=== PATIENT | female | born 1985 | race Two or more races ===

== ENCOUNTER 2024-05-25 18:29 | Emergency (ER) | payer OTHER ==
[~2024-05-25] VITALS: Ht 165.1 cm; Wt 65.8 kg
[2024-05-25] MEDS ORDERED: LEVOTHYROXINE50 MCG PO (18:38)
== END 2024-05-25 19:12 | disposition home or self-care (01) ==
LOC: ER 18:30
DX: T85.44XA Capsular contracture of breast implant, initial encounter (principal); Z88.2 Allergy status to sulfonamides; Z88.0 Allergy status to penicillin

== ENCOUNTER 2024-12-04 19:29 | Emergency (ER) | payer OTHER ==
[~2024-12-04] VITALS: Ht 165.1 cm; Wt 72.6 kg
[~2024-12-04 19:29] MED LIST: LEVOTHYROXINE50 MCG PO
[2024-12-04] MEDS ORDERED: SYNTHROID50 MCG PO (19:39)
== END 2024-12-04 22:01 | disposition home or self-care (01) ==
LOC: ER 19:32
DX: K40.90 Unilateral inguinal hernia, without obstruction or gangrene, not specified as recurrent (principal); Z88.8 Allergy status to other drugs, medicaments and biological substances

== ENCOUNTER 2025-06-08 20:27 | Emergency (ER) | payer OTHER ==
[~2025-06-08] VITALS: Ht 162.6 cm; Wt 68.0 kg
[~2025-06-08 20:27] MED LIST changes: +SYNTHROID50 MCG PO
[2025-06-08] MEDS ORDERED: LEVOTHYROXINE50 MCG (20:32)
[2025-06-08 20:33] VITALS: BP 122/85; O2SAT 99
[2025-06-08] MEDS ORDERED: IPRATROPIUM/ALBUTEROL SULFATE 3 ML AMPUL.NEB IH SCH (21:00)
[2025-06-08 21:18] LABS: BASO % 0.2 % (0.1-1.2); EOS # 0.06 (0.04-0.54); EOS % 1.5 % (0.7-7.0); LYMPH # 1.44 (1.18-3.74); LYMPH % 35.6 % (19.3-53.1); MEAN PLATELET VOLUME 10.00 fl (9.4-12.4); MONO # 0.70 (0.24-0.82); NEUT # 1.82 (1.56-6.13); NEUT % 45.2 % (34.0-71.1); RED CELL DISTRIBUTION WIDTH 15.6 % (11.6-14.4)
[2025-06-08 21:22] LABS: MONO % 17.3 % (4.7-12.5)
[2025-06-08] MEDS ORDERED: IPRATROPIUM/ALBUTEROL SULFATE 3 ML AMPUL.NEB IH ONE (21:25)
[2025-06-08 22:02] LABS: URINE APPEARANCE Error; URINE BILIRRUBIN Negative (NEGATIVE); URINE BLOOD Negative; URINE COLOR Yellow; URINE GLUCOSE Negative (NEGATIVE); URINE KETONE Trace (NEGATIVE); URINE LEUKOCYTE Negative; URINE NITRATE Negative; URINE PROTEIN Negative (NEGATIVE); URINE UROBILINOGEN 0.2 E.U./dl
[2025-06-08 22:06] LABS: URINE BACTERIA 3669.3 uL (0.0-1933); URINE EPITHELIAL CELLS 79.2 uL (0.0-38.8); URINE RBC 5.8 uL (0.0-20.8); URINE WBC 20.1 uL (0.0-23.2)
[2025-06-08 22:20] LABS: COVID-19 AG NEGATIVE (NEGATIVE)
[2025-06-08 22:21] LABS: URINE CAST 0.00 uL (0.0-1.40)
[2025-06-08] MEDS ORDERED: OSEL75CA PO (22:39)
[2025-06-08] MEDS ORDERED: PEPCID AC20 MG PO (22:39)
[2025-06-08] MEDS ORDERED: SINGULAIR10 MG PO (22:40)
[2025-06-08] MEDS ORDERED: LEVALBUTER0.63 MG/3 IH (22:40)
[2025-06-08] MEDS ORDERED: BENZONATATE200 M1 PO (22:40)
== END 2025-06-08 22:45 | disposition home or self-care (01) ==
LOC: ER 20:27
PROVIDERS: General Practice
DX: J10.1 Influenza due to other identified influenza virus with other respiratory manifestations (principal); R05.9 Cough, unspecified; Z20.822 Contact with and (suspected) exposure to COVID-19; E03.8 Other specified hypothyroidism; Z88.0 Allergy status to penicillin; Z88.2 Allergy status to sulfonamides